=== PATIENT | male | born 1965 | race Two or more races ===

== ENCOUNTER 2023-10-28 17:37 | Inpatient (IN) | payer OTHER ==
[~2023-10-28] VITALS: Ht 175.3 cm; Wt 94.0 kg
[2023-10-28] MEDS: chlordiazePOXIDE HCL 5 MG CAP PO ONE (18:50)
[2023-10-28] MEDS: LORazepam 2MG/ML-1ML VIAL IV ONE (19:09)
[2023-10-28 20:06] LABS: Basophils # (auto) 0 10 ^3/uL (0-0.2); Basophils % (auto) 0.9 % (0.0-2.0); Eosinophils # (auto) 0 10 ^3/uL (0-0.8); Eosinophils % (auto) 0.9 % (0.0-7.0); Hematocrit 38.9 % (41.0-53.0); Hemoglobin 13.1 g/dL (13.5-17.5); Lymphocytes # (auto) 1.1 10 ^3/uL (0.4-5.4); Lymphocytes % (auto) 25.8 % (10.0-50.0); Mean Corpuscular Hemoglobin 32.7 pg (28.0-32.0); Mean Corpuscular Hgb Conc. 33.8 g/dL (32.0-36.0); Mean Corpuscular Volume 96.7 fL (80.0-100.0); Monocytes # (auto) 0.5 10 ^3/uL (0-1.3); Monocytes % (auto) 11.9 % (0.0-12.0); Neutrophils # (auto) 2.7 10 ^3/uL (1.6-8.6); Neutrophils % (auto) 60.5 % (37.0-80.0); Nucleated Red Blood Cells % 0.2 %; Platelet Count (auto) 196 10^3/uL (140-450); Red Blood Cells 4.02 10^6/uL (4.5-5.90); Red Cell Distribution Width 15.6 % (11.8-14.3); White Blood Cell 4.4 10^3/uL (4.4-10.8)
[2023-10-28 20:08] LABS: Urine Bacteria None Seen /hpf (None Seen)
[2023-10-28 20:23] LABS: Alanine Aminotransferase 27 U/L (7-40); Albumin 4.5 g/dL (3.2-4.8); Alkaline Phosphatase 94 U/L (46-116); Anion Gap 6 (5-15); Aspartate Aminotransferase 34 U/L (13-40); Bilirubin, Total 0.4 mg/dL (0.2-1.0); Blood Alcohol 299.3 mg/dL (<10); Calcium 8.9 mg/dL (8.7-10.4); Carbon Dioxide 32 mmol/L (20-30); Chloride 106 mmol/L (98-107); Glucose 109 mg/dL (74-106); Potassium 4.1 mmol/L (3.5-5.1); Sodium 144 mmol/L (136-145); Total Protein 6.8 g/dL (5.7-8.2)
[2023-10-28 20:31] LABS: BUN/Creatinine Ratio 6.3 (10.0-20.0); Blood Urea Nitrogen < 5 mg/dL (9-23)
[2023-10-28 20:40] LABS: Urine Blood Negative /uL (Negative); Urine Clarity Clear (Clear); Urine Color Colorless (Yellow); Urine Protein, UAD Negative (Negative); Urine Specific Gravity 1.003 (1.001-1.035); Urine Urobilinogen Normal (Negative); Urine WBC <1 /hpf (0 - 3); Urine pH 6.5 (5.0-9.0)
[2023-10-28 20:44] LABS: Amphetamine Screen, Urine Neg (NEGATIVE); Barbiturate Scree,Urine Neg (NEGATIVE); Benzodiazephine Screen, Urine Neg (NEGATIVE); Cannabinoid Screen, Urine Pos (NEGATIVE); Cocaine Screen, Urine Neg (NEGATIVE); Opiate Scree,Urine Neg (NEGATIVE); Phencyclidine Screen, Urine Neg (NEGATIVE)
[2023-10-28] MEDS: SODIUM CHLORIDE 0.9% 1,000 ML IV ONE (22:46)
[2023-10-29] VITALS (9 sets, daily range): BP systolic 163–174; BP diastolic 96–115; PULSE 61–153; RESP 18–22; TEMP 98.2–98.5; O2SAT 95–97
[2023-10-29] MEDS: SODIUM CHLORIDE 0.9% 1,000 ML IV SCH
[2023-10-29] MEDS ORDERED: NITROGLYCERIN 0.4 MG SL TAB SL PRN
[2023-10-29] MEDS ORDERED: HYDROcodone-ACET 5/325MG TAB PO PRN
[2023-10-29] MEDS ORDERED: MORPHINE SULFATE INJ 2 MG/ml SYRG IV PRN
[2023-10-29] MEDS ORDERED: DOCUSATE SOD 100 MG CAP PO PRN
[2023-10-29] MEDS ORDERED: ACETAMINOPHEN 325 MG TAB PO PRN
[2023-10-29] MEDS ORDERED: ONDANSETRON HCL 4 MG/2 ML VIAL IV PRN
[2023-10-29] MEDS: chlordiazePOXIDE HCL 25 MG CAP PO PRN (01:56)
[2023-10-29 05:12] LABS: Basophils # (auto) 0 10 ^3/uL (0-0.2); Basophils % (auto) 0.8 % (0.0-2.0); Eosinophils # (auto) 0.1 10 ^3/uL (0-0.8); Eosinophils % (auto) 1.1 % (0.0-7.0); Hematocrit 40.5 % (41.0-53.0); Hemoglobin 13.7 g/dL (13.5-17.5); Lymphocytes # (auto) 1.5 10 ^3/uL (0.4-5.4); Lymphocytes % (auto) 26.3 % (10.0-50.0); Mean Corpuscular Hgb Conc. 33.9 g/dL (32.0-36.0); Mean Corpuscular Volume 97.4 fL (80.0-100.0); Monocytes # (auto) 0.8 10 ^3/uL (0-1.3); Monocytes % (auto) 14.5 % (0.0-12.0); Neutrophils # (auto) 3.3 10 ^3/uL (1.6-8.6); Neutrophils % (auto) 57.3 % (37.0-80.0); Platelet Count (auto) 200 10^3/uL (140-450); Red Blood Cells 4.16 10^6/uL (4.5-5.90); Red Cell Distribution Width 15.7 % (11.8-14.3); White Blood Cell 5.7 10^3/uL (4.4-10.8)
[2023-10-29 05:20] LABS: Alanine Aminotransferase 26 U/L (7-40); Albumin 4.5 g/dL (3.2-4.8); Alkaline Phosphatase 84 U/L (46-116); Anion Gap 7 (5-15); Aspartate Aminotransferase 35 U/L (13-40); Bilirubin, Total 0.7 mg/dL (0.2-1.0); Calcium 8.8 mg/dL (8.7-10.4); Carbon Dioxide 30 mmol/L (20-30); Chloride 106 mmol/L (98-107); Glucose 97 mg/dL (74-106); Potassium 3.7 mmol/L (3.5-5.1); Sodium 143 mmol/L (136-145); Total Protein 6.8 g/dL (5.7-8.2)
[2023-10-29 05:37] LABS: BUN/Creatinine Ratio 6.9 (10.0-20.0); Blood Urea Nitrogen < 5 mg/dL (9-23)
[2023-10-29] MEDS: hydrALAZINE HCL 20 MG/ML VL IV PRN (06:27)
[2023-10-29] MEDS: LORazepam 2MG/ML-1ML VIAL IV PRN (06:47)
[2023-10-29] MEDS: MULTIPLE VITAMIN TAB PO SCH (09:52)
[2023-10-29] MEDS: THIAMINE 100mg/ml INJ (200mg/2ml VIAL) IV SCH (09:54)
[2023-10-29] MEDS: LOSARTAN POTASSIUM 50 MG TAB PO SCH (09:55)
[2023-10-29] MEDS: FOLIC ACID 1 MG in D5W 5% 50 ML INJ SCH (13:02)
[2023-10-29] MEDS ORDERED: BUPR1SUB35 SL (17:30)
[2023-10-30] VITALS (8 sets, daily range): BP systolic 118–181; BP diastolic 72–94; PULSE 72–118; RESP 18–27; TEMP 97.8–99.9; O2SAT 95–98
[2023-10-30] MEDS: SODIUM CHLORIDE 0.9% 1,000 ML IV SCH (15:45)
[2023-10-30] MEDS: BUPRENORPHINE -NALOXONE 8-2mg SL TAB SL ONE (15:45)
[2023-10-31 01:00] VITALS: BP 148/104; PULSE 104; RESP 18; TEMP 98.5; O2SAT 97
[2023-10-31] MEDS: MELATONIN 5 MG TAB PO ONE (02:07)
[2023-10-31 08:00] VITALS: PULSE 97
[2023-10-31] MEDS: BUPRENORPHINE -NALOXONE 8-2mg SL TAB SL SCH (08:38)
[2023-10-31 09:00] VITALS: BP 157/103; PULSE 101; RESP 17; TEMP 97.8; O2SAT 95
[2023-10-31 13:00] VITALS: BP 132/90; PULSE 80; RESP 20; TEMP 98.9; O2SAT 96
[2023-10-31 17:00] VITALS: BP 146/100; PULSE 114; RESP 18; TEMP 98.3; O2SAT 98
[2023-10-31 17:54] VITALS: BP 157/103; PULSE 114; RESP 18; TEMP 98.3; O2SAT 98
== END 2023-10-31 18:18 | disposition home or self-care (01) | DRG 816 ==
LOC: ER 17:37 → TELE 23:55 → TELE-WESTW 23:55
PROVIDERS: ADMIT Nurse Practitioner Family; ATTEND Internal Medicine
DX: T51.0X1A Toxic effect of ethanol, accidental (unintentional), initial encounter (principal); G92.8 Other toxic encephalopathy; F10.129 Alcohol abuse with intoxication, unspecified; F10.139 Alcohol abuse with withdrawal, unspecified; I10 Essential (primary) hypertension; Y90.8 Blood alcohol level of 240 mg/100 ml or more; Z79.899 Other long term (current) drug therapy
CPT/HCPCS: 36415; 80053; 80307; 80320; 81001; 83880; 85025; 97163; G0378; J7060